=== PATIENT | female | born 1955 | race Caucasian/White ===

== ENCOUNTER 2018-02-03 06:23 | Day surgery (SDC) | payer BC ==
[2018-02-03] MEDS ORDERED: PROPOFOL 10 MG/ML VIAL IV ONE (06:24)
[2018-02-03] MEDS ORDERED: LIDOCAINE 2% MDV (20MG/ML) 20ML VIAL IV ONE (06:24)
--- NOTE | 2018-02-04 10:10 | Operative Note ---
DATE OF SURGERY: 02/03/18 OPERATION: COLONOSCOPY. PREOPERATIVE DIAGNOSIS: Family history of colon cancer in first-degree relative. POSTOPERATIVE DIAGNOSIS: Normal exam. PREPARATION QUALITY: Good. ESTIMATED BLOOD LOSS: None. SPECIMENS: None. COMPLICATIONS: None. PROCEDURE: After informed consent was obtained from the patient, she was placed in the left lateral decubitus position in the endoscopy suite, sedated and monitored by the department of anesthesia. Digital rectal examination was unremarkable. A well-lubricated [id number] colonoscope was inserted into the rectum and advanced to the cecum. The cecum, cecal bulb, ileocecal valve, appendiceal orifice, ascending colon, transverse colon, descending colon, sigmoid colon, and rectum were free of inflammatory changes, mass lesions, or polyps. J-turn views of the anorectum and forward views of the rectum were unremarkable. The endoscope was straightened, the rectal ampulla deflated, and the endoscope was removed. RECOMMENDATIONS: The patient should resume her medications and diet. Given her first-degree family history, I would recommend a repeat exam in 5 years. As always, thank you for allowing me to participate in the healthcare of your patients. CC: DO ARIS Blake
== END 2018-02-03 08:12 | disposition home or self-care (01) ==
LOC: HOP 06:23
PROVIDERS: ATTEND Internal Medicine Gastroenterology
DX: Z12.11 Encounter for screening for malignant neoplasm of colon (principal); Z80.0 Family history of malignant neoplasm of digestive organs; I10 Essential (primary) hypertension; E78.00 Pure hypercholesterolemia, unspecified
CPT/HCPCS: 00812; G0105